=== PATIENT | female | born 1995 | race Caucasian/White ===

== ENCOUNTER 2018-06-15 13:30 | Inpatient (IN) | payer MEDICAID ==
[2018-06-15] MEDS ORDERED: NS(*) 0.9% 1000 ML BAG 2,000 ML IV ONE (13:39)
--- NOTE | 2018-06-15 13:39 | ER Report ---
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 Patient is , initially found to be hypotensive with systolic of 80, tachycardic in the 130s. Patient had received Pitocin 10 units twice while at home. Patient is full-term. Denies other comorbidities. Patient is alert and oriented at time of arrival. REVIEW OF SYSTEMS: Constitutional: No fever, no chills. Eyes: No discharge. ENT: No sore throat. Cardiovascular: No chest pain, no palpitations. Respiratory: No cough, no shortness of breath. Gastrointestinal: No abdominal pain, no vomiting. Genitourinary: + Vaginal laceration at 7:00 at the vaginal entrance, bleeding from laceration higher in the vaginal vault. Musculoskeletal: No back pain. Skin: No rashes. Neurological: No headache. Allergies: Coded Allergies: amoxicillin (Verified Allergy, Unknown, 06/15/18) Home Meds Active Scripts Ibuprofen (IBUPROFEN) 800 Mg Tablet, 800 MG PO Q8H@0300,1100,1900 PRN for PAIN, #30 TAB 0 Refills Prov:BARRY SANTOS MD 06/16/18 Reported Medications Cranberry Extract (CRANBERRY) 200 Mg Capsule, 200 MG PO, CAPSULE 06/15/18 [place]-3 Fatty Acids/Fish Oil (FISH OIL 1,000 MG CAPSULE) 1 Each Capsule, 1 EACH PO, CAPSULE 06/15/18 Flavoring Agent (GRAPEFRUIT) 1 Ml Oil, 1 ML MC 06/15/18 [Thyroid Support ] No Conflict Check 06/15/18 Vits W-Ca,Fe,Fa(<1MG) ( VITAMINS) 1 Each Tablet, 1 EACH PO DAILY, TAB 06/15/18 Constitutional Vital Sign - Last 24 Hours 06/15/18 06/15/18 06/15/18 06/15/18 13:30 13:32 13:35 13:35 Temp 98.2 Pulse ??? 104 Resp 14 B/P (MAP) 81/34 (50) 118/91 (100) 113/84 Pulse Ox 99 O2 Delivery Room Air 06/15/18 06/15/18 06/15/18 06/15/18 13:43 13:45 13:50 14:00 Pulse 108 192 Resp 51 9 B/P (MAP) 113/84 (94) 114/70 (85) 119/76 (90) Pulse Ox 99 77 06/15/18 06/15/18 06/15/18 06/15/18 14:10 14:15 14:20 14:30 Pulse 110 ??? Resp 17 8 B/P (MAP) 119/75 (90) 119/69 (86) 111/72 (85) Pulse Ox 97 97 06/15/18 06/15/18 06/15/18 06/15/18 14:40 14:41 14:45 14:50 Pulse 110 Resp 6 B/P (MAP) 118/74 (89) 112/67 (82) Pulse Ox 98 O2 Flow Rate 3.0 06/15/18 06/15/18 06/15/18 06/15/18 15:00 15:10 15:15 15:20 Pulse 104 119 114 Resp 6 23 19 B/P (MAP) 123/67 (85) 119/62 (81) Pulse Ox 97 97 95 06/15/18 06/15/18 06/15/18 06/15/18 15:27 15:29 15:31 15:35 Pulse 97 Resp 17 B/P (MAP) 110/69 (83) 90/61 (71) 102/50 (67) Pulse Ox 97 06/15/18 06/15/18 06/15/18 06/15/18 15:40 15:50 16:00 16:05 Pulse 103 101 Resp 13 18 B/P (MAP) 118/75 (89) 114/76 (89) 118/78 (91) Pulse Ox 96 98 06/15/18 06/15/18 06/15/18 06/15/18 16:10 16:20 16:29 16:30 Pulse 108 Resp 10 B/P (MAP) 118/80 (93) 119/69 (86) 118/75 (89) 120/80 (93) Pulse Ox 97 06/15/18 06/15/18 06/15/18 06/15/18 16:32 16:34 16:35 16:40 Pulse 103 165 119 161 Resp 21 B/P (MAP) 94/79 (84) 118/75 (89) 109/65 (80) 120/80 (93) 94/79 (84) Pulse Ox 93 94 O2 Delivery Room Air 06/15/18 06/15/18 06/15/18 16:50 17:00 17:05 Pulse 101 107 Resp 10 16 B/P (MAP) 112/59 (76) 110/68 (82) Pulse Ox 93 94 Intake and Output 06/15/18 06/15/18 06/16/18 14:59 22:59 06:59 Intake Total 2000 ml Balance 2000 ml Physical Exam General Appearance: The patient is alert, has no immediate need for airway protection and no signs of toxicity. Stable, alert and oriented, fatigued and weak Eyes: Pupils equal and round no pallor or injection. ENT, Mouth: Mucous membranes are moist. Respiratory: There are no retractions, lungs are clear to auscultation. Cardiovascular: Regular rate and rhythm. Gastrointestinal: Abdomen is soft and non tender, no masses, bowel sounds normal. Neurological: No focal neurological deficits Skin: Warm and dry, no rashes. Musculoskeletal: Neck is supple non tender. Extremities are nontender, nonswollen and have full range of motion. Genitourinary: Vaginal laceration at 7:00 at the vaginal introitus, bleeding from deeper in the vaginal vault DIFFERENTIAL DIAGNOSIS: After history and physical exam differential diagnosis was considered for vaginal laceration , retained products of conception, uterine atony Medical Decision Making Data Points Result Diagram: 06/16/18 0200 06/15/18 1336 Laboratory Hematology Test 06/15/18 13:36 06/15/18 15:43 Neutrophils % (Manual) 75 % (39.4-72.5) Band Neutrophils % 18 % Lymphocytes % (Manual) 3 % (17.6-49.6) Monocytes % (Manual) 4 % (4.1-12.4) Eosinophils % (Manual) 0 % (0.4-6.7) Basophils % (Manual) 0 % (0.3-1.4) Platelet Estimate Normal Prothrombin Time 13.8 seconds (12.0-14.4) Prothromb Time International Ratio 1.05 Activated Partial Thromboplast Time 29 seconds (23-35) Sodium Level 131 mmol/L (137-145) Potassium Level 4.2 mmol/L (3.5-5.0) Chloride Level 104 mmol/L (98-107) Carbon Dioxide Level 19 mmol/L (22-31) Blood Urea Nitrogen 11 mg/dl (7-18) Creatinine 0.80 mg/dl (0.52-1.04) Glomerular Filtration Rate Calc > 60.0 Random Glucose 177 mg/dl (75-110) Calcium Level 9.1 mg/dl (8.4-10.2) Total Bilirubin 0.2 mg/dl (0.2-1.3) Aspartate Amino Transf (AST/SGOT) 27 U/L (0-35) Alanine Aminotransferase (ALT/SGPT) 23 U/L (0-56) Alkaline Phosphatase 113 U/L (0-126) Total Protein 6.0 g/dl (6.3-8.2) Albumin 3.4 g/dl (3.5-5.0) Red Blood Count 3.33 M/uL (4.17-5.56) Mean Corpuscular Volume 90.0 fL (80.0-96.0) Mean Corpuscular Hemoglobin 30.5 pg (26.0-33.0) Mean Corpuscular Hemoglobin Concent 33.9 g/dL (32.0-36.0) Red Cell Distribution Width 13.2 % (11.5-14.5) Mean Platelet Volume 8.3 fL (7.2-11.1) Neutrophils (%) (Auto) 93.3 % (39.4-72.5) Lymphocytes (%) (Auto) 1.7 % (17.6-49.6) Monocytes (%) (Auto) 4.3 % (4.1-12.4) Eosinophils (%) (Auto) 0.0 % (0.4-6.7) Basophils (%) (Auto) 0.1 % (0.3-1.4) Nucleated RBC Relative Count (auto) 0.0 /100WBC Neutrophils # (Auto) 18.5 K/uL (2.0-7.4) Lymphocytes # (Auto) 0.3 K/uL (1.3-3.6) Monocytes # (Auto) 0.9 K/uL (0.3-1.0) Eosinophils # (Auto) 0.0 K/uL (0.0-0.5) Basophils # (Auto) 0.0 K/uL (0.0-0.1) Nucleated RBC Absolute Count (auto) 0.00 K/uL Peripheral Blood Smear Yes Y/N Chemistry Test 06/15/18 13:36 06/15/18 15:43 Neutrophils % (Manual) 75 % (39.4-72.5) Band Neutrophils % 18 % Lymphocytes % (Manual) 3 % (17.6-49.6) Monocytes % (Manual) 4 % (4.1-12.4) Eosinophils % (Manual) 0 % (0.4-6.7) Basophils % (Manual) 0 % (0.3-1.4) Platelet Estimate Normal Prothrombin Time 13.8 seconds (12.0-14.4) Prothromb Time International Ratio 1.05 Activated Partial Thromboplast Time 29 seconds (23-35) Glomerular Filtration Rate Calc > 60.0 Calcium Level 9.1 mg/dl (8.4-10.2) Total Bilirubin 0.2 mg/dl (0.2-1.3) Aspartate Amino Transf (AST/SGOT) 27 U/L (0-35) Alanine Aminotransferase (ALT/SGPT) 23 U/L (0-56) Alkaline Phosphatase 113 U/L (0-126) Total Protein 6.0 g/dl (6.3-8.2) Albumin 3.4 g/dl (3.5-5.0) White Blood Count 19.9 k/uL (4.5-11.0) Red Blood Count 3.33 M/uL (4.17-5.56) Mean Corpuscular Volume 90.0 fL (80.0-96.0) Mean Corpuscular Hemoglobin 30.5 pg (26.0-33.0) Mean Corpuscular Hemoglobin Concent 33.9 g/dL (32.0-36.0) Red Cell Distribution Width 13.2 % (11.5-14.5) Platelet Count 160 K/uL (150-450) Mean Platelet Volume 8.3 fL (7.2-11.1) Neutrophils (%) (Auto) 93.3 % (39.4-72.5) Lymphocytes (%) (Auto) 1.7 % (17.6-49.6) Monocytes (%) (Auto) 4.3 % (4.1-12.4) Eosinophils (%) (Auto) 0.0 % (0.4-6.7) Basophils (%) (Auto) 0.1 % (0.3-1.4) Nucleated RBC Relative Count (auto) 0.0 /100WBC Neutrophils # (Auto) 18.5 K/uL (2.0-7.4) Lymphocytes # (Auto) 0.3 K/uL (1.3-3.6) Monocytes # (Auto) 0.9 K/uL (0.3-1.0) Eosinophils # (Auto) 0.0 K/uL (0.0-0.5) Basophils # (Auto) 0.0 K/uL (0.0-0.1) Nucleated RBC Absolute Count (auto) 0.00 K/uL Peripheral Blood Smear Yes Y/N Coagulation Test 06/15/18 13:36 Prothrombin Time 13.8 seconds Prothromb Time International Ratio 1.05 Activated Partial Thromboplast Time 29 seconds ED Course/Re-evaluation ED Course Patient is a 23-year-old female here with complaints of vaginal bleeding with vaginal laceration at the vaginal introitus, incompletely visualized laceration deeper in the vaginal vault. Patient was initially tachycardic, hypotensive but responded well to fluid resuscitation after 2 large-bore IVs were established. Hemoglobin and hematocrit were stable. I discussed the patient with Dr. Santos after initial visualization using a speculum. I discussed the patient with him since I was unable to fully visualize the deeper laceration which will likely need suture repair and approximation. Patient was repaired by Dr. Santos. Patient's orthostatics were tested and patient was noted he orthostatic, profoundly tachycardic while standing, initial ly having a syncopal episode when transitioning from a seated to a standing position. Urine after the patient received 2 L of fluid, patient remained orthostatic and extremely lightheaded while standing. Hemoglobin and hematocrit were rechecked as a baseline was not established prior to delivery. 2nd CBC showed a further drop in H&H of a minimum of 2 g hemoglobin. More importantly, the patient remained symptomatic so 2 units of packed red blood cells were ordered and patient was subsequently admitted to [facility] under Dr. Santos's service. Patient was nontoxic appearing at time of admission. Decision to Disposition Date: Jun 15, 2018 Decision to Disposition Time: 16:30 Depart Departure Latest Vital Signs Vital Signs Date Time Temp Pulse Resp B/P (MAP) Pulse Ox O2 Delivery O2 Flow Rate FiO2 06/15/18 17:05 107 16 94 06/15/18 17:00 110/68 (82) 06/15/18 16:34 Room Air 06/15/18 14:41 3.0 06/15/18 13:35 98.2 Impression: Primary Impression: Status post vaginal delivery Additional Impression: Vaginal bleeding Condition: Improved Disposition: Admitted from ER New Scripts Ibuprofen (IBUPROFEN) 800 Mg Tablet 800 MG PO Q8H@0300,1100,1900 PRN for PAIN, #30 TAB 0 Refills Prov: BARRY SANTOS MD 06/16/18 Patient Instructions: Post Discharge Instruct Additional Instructions: Please drink plenty of water to maintain hydration. Please return immediately if she develop recurrent bleeding, fevers, abdominal pains, nausea, vomiting, visual changes, headaches. Please keep all appointments as scheduled. Problem Qualifiers EVELYN DAVIS DO Jun 15, 2018 13:39
[2018-06-15 13:55] LABS: INR 1.05
[2018-06-15 13:56] LABS: PLATELET COUNT, AUTOMATED 209 K/uL (150-450)
[2018-06-15] MEDS ORDERED: fentaNYL CITR 100 MCG/2 ML AMP ONE (14:02)
[2018-06-15] MEDS ORDERED: NS(*) 0.9% 1000 ML BAG 1,000 ML IV ONE (15:35)
[2018-06-15 15:56] LABS: PLATELET COUNT, AUTOMATED 160 K/uL (150-450)
[2018-06-15] MEDS ORDERED: PREN-127 PO (17:01)
[2018-06-15] MEDS ORDERED: CRAN200C5 PO (17:01)
[2018-06-15] MEDS ORDERED: OMEG-11 PO (17:01)
[2018-06-15] MEDS ORDERED: THYROID SUPPORT (17:01)
[2018-06-15] MEDS ORDERED: [UNRECOGNIZED DRUG - CODE] MC (17:01)
[2018-06-15] MEDS ORDERED: ACETAMINOPHEN 500 MG TAB PO ONE (17:20)
[2018-06-15] MEDS ORDERED: diphenhydrAMINE 25 MG CAP PO ONE (17:20)
[2018-06-15] MEDS ORDERED: NS(*) 0.9% 500 ML BAG 500 ML IV ONE (17:40)
[2018-06-15] MEDS ORDERED: BENZOCAINE 20% 60 ML BTL TP PRN (18:25)
[2018-06-15] MEDS ORDERED: GLYCERIN/WITCH HAZEL LEAF 1 PK TOP PRN (18:25)
[2018-06-15] MEDS ORDERED: LANOLIN OINT 7 GM TUBE TP PRN (18:25)
[2018-06-15 19:25] VITALS: BP 133/74
[2018-06-15 19:30] VITALS: BP 133/74
[2018-06-15 21:10] VITALS: BP 133/72
--- NOTE | 2018-06-15 21:41 | CONSULTATION ---
EVENT DATE: June 15, 2018 CONSULTING PHYSICIAN David Santos MD IMPRESSION 1. Three hours status post normal spontaneous vaginal delivery at home with a automation qa lead. 2. Vaginal and perineal lacerations. 3. Obstetrical hemorrhage due to lacerations. PHYSICAL EXAMINATION I have evaluated the patient and examined her in the Emergency Room and deemed the bleeding to be primarily sourced from the lacerations present within the vagina and perineum. She had a first-degree laceration at the opening of the introitus that did not break the outer perineum, but did perforate into the inner perineum. There was also a vaginal sulcus extension along the right side and a left-sided periurethral laceration that extended into the anterior vaginal sulcus on that side. Both left and right lacerations extended onto the left labia minor. PROCEDURE These were all repaired using 2-0 chromic in a running locking fashion through the length of the vaginal lacerations and perineal body. A 3-0 chromic was used to repair the left anterior vagina and left periurethral and labial laceration. 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 She was hypotensive upon arrival with a systolic of 80 and tachycardic in the 130s. The patient received 20 units of Pitocin while at home and was full term. Upon arrival to the Emergency Room, they started IV fluids for hemodynamic support. After initial analysis and assessment by the Emergency Room, including the CBC showing a white blood cell count of 23, hemoglobin 12.7, hematocrit 37.4, platelets 209, and an assessment of the bleeding, I was called to assess and further help repair the vaginal and perineal lacerations. Otherwise, the emergency room physician deemed the patient hemodynamically stable. IOANA
[2018-06-15 22:16] VITALS: BP 123/75
[2018-06-15 23:00] VITALS: BP 131/67
[2018-06-16] MEDS: IBUPROFEN 800 MG TAB PO SCH ×2 (00:08→11:33)
[2018-06-16 00:18] VITALS: BP 129/83
[2018-06-16 00:21] VITALS: BP 129/83
[2018-06-16 04:24] VITALS: BP 119/61
[2018-06-16 08:11] VITALS: BP 110/67
--- NOTE | 2018-06-16 11:14 | History & Physical ---
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 She was hypotensive upon arrival with a systolic of 80 and tachycardic in the 130s. The patient received 20 units of Pitocin while at home and was full term. Upon arrival to the Emergency Room, they started IV fluids for hemodynamic support. After initial analysis and assessment by the Emergency Room, including the CBC showing a white blood cell count of 23, hemoglobin 12.7, hematocrit 37.4, platelets 209, and an assessment of the bleeding, I was called to assess and further help repair the vaginal and perineal lacerations. Otherwise, the emergency room physician deemed the patient hemodynamically stable. Following my repair and leaving the emergency room, the pt could not stand to ambulate and was orthostatic. It was requested that I admit the pt for further treatment. I recommended 2 units PRBCs to be transfused right away. Her hgb settled to 10.5 in ER. She was admitted to the floor for transfusion. History Allergies: Coded Allergies: amoxicillin (Verified Allergy, Unknown, 06/15/18) Med Rec Home Meds Reported Medications Cranberry Extract (CRANBERRY) 200 Mg Capsule, 200 MG PO, CAPSULE 06/15/18 [place]-3 Fatty Acids/Fish Oil (FISH OIL 1,000 MG CAPSULE) 1 Each Capsule, 1 EACH PO, CAPSULE 06/15/18 Flavoring Agent (GRAPEFRUIT) 1 Ml Oil, 1 ML MC 06/15/18 [Thyroid Support ] No Conflict Check 06/15/18 Vits W-Ca,Fe,Fa(<1MG) ( VITAMINS) 1 Each Tablet, 1 EACH PO DAILY, TAB 06/15/18 Review of Systems All Systems Reviewed/Normal: Yes, Except as Noted Neurological: Syncope, Weakness, Dizziness Exam General Exam Vital Signs Vital Signs Date Time Temp Pulse Resp B/P (MAP) Pulse Ox O2 Delivery O2 Flow Rate FiO2 06/16/18 08:11 98.2 92 14 110/67 (81) 06/16/18 04:24 98 Room Air 06/15/18 14:41 3.0 General Apperance: Alert/Awake/No Acute Distress Neuro: No Gross deficits Cardiovascular: Regular Rate and Rhythm Respiratory: No Respiratory Distress, Clear to Auscultation Abdomen: Soft, Non-Tender, Non-Distended Integumentary: Skin Intact without Lesions or Rash Psychological: Alert & Oriented X3, Appropriate Mood & Affect Medical Decision Making Data Points Result Diagram: 06/16/18 0200 06/15/18 1336 Hematology Test 06/15/18 13:36 06/15/18 15:43 Neutrophils % (Manual) 75 % (39.4-72.5) Band Neutrophils % 18 % Lymphocytes % (Manual) 3 % (17.6-49.6) Monocytes % (Manual) 4 % (4.1-12.4) Eosinophils % (Manual) 0 % (0.4-6.7) Basophils % (Manual) 0 % (0.3-1.4) Platelet Estimate Normal Prothrombin Time 13.8 seconds (12.0-14.4) Prothromb Time International Ratio 1.05 Activated Partial Thromboplast Time 29 seconds (23-35) Sodium Level 131 mmol/L (137-145) Potassium Level 4.2 mmol/L (3.5-5.0) Chloride Level 104 mmol/L (98-107) Carbon Dioxide Level 19 mmol/L (22-31) Blood Urea Nitrogen 11 mg/dl (7-18) Creatinine 0.80 mg/dl (0.52-1.04) Glomerular Filtration Rate Calc > 60.0 Random Glucose 177 mg/dl (75-110) Calcium Level 9.1 mg/dl (8.4-10.2) Total Bilirubin 0.2 mg/dl (0.2-1.3) Aspartate Amino Transf (AST/SGOT) 27 U/L (0-35) Alanine Aminotransferase (ALT/SGPT) 23 U/L (0-56) Alkaline Phosphatase 113 U/L (0-126) Total Protein 6.0 g/dl (6.3-8.2) Albumin 3.4 g/dl (3.5-5.0) Red Blood Count 3.33 M/uL (4.17-5.56) Mean Corpuscular Volume 90.0 fL (80.0-96.0) Mean Corpuscular Hemoglobin 30.5 pg (26.0-33.0) Mean Corpuscular Hemoglobin Concent 33.9 g/dL (32.0-36.0) Red Cell Distribution Width 13.2 % (11.5-14.5) Mean Platelet Volume 8.3 fL (7.2-11.1) Neutrophils (%) (Auto) 93.3 % (39.4-72.5) Lymphocytes (%) (Auto) 1.7 % (17.6-49.6) Monocytes (%) (Auto) 4.3 % (4.1-12.4) Eosinophils (%) (Auto) 0.0 % (0.4-6.7) Basophils (%) (Auto) 0.1 % (0.3-1.4) Nucleated RBC Relative Count (auto) 0.0 /100WBC Neutrophils # (Auto) 18.5 K/uL (2.0-7.4) Lymphocytes # (Auto) 0.3 K/uL (1.3-3.6) Monocytes # (Auto) 0.9 K/uL (0.3-1.0) Eosinophils # (Auto) 0.0 K/uL (0.0-0.5) Basophils # (Auto) 0.0 K/uL (0.0-0.1) Nucleated RBC Absolute Count (auto) 0.00 K/uL Peripheral Blood Smear Yes Y/N Chemistry Test 06/15/18 13:36 06/15/18 15:43 06/16/18 02:00 Neutrophils % (Manual) 75 % (39.4-72.5) Band Neutrophils % 18 % Lymphocytes % (Manual) 3 % (17.6-49.6) Monocytes % (Manual) 4 % (4.1-12.4) Eosinophils % (Manual) 0 % (0.4-6.7) Basophils % (Manual) 0 % (0.3-1.4) Platelet Estimate Normal Prothrombin Time 13.8 seconds (12.0-14.4) Prothromb Time International Ratio 1.05 Activated Partial Thromboplast Time 29 seconds (23-35) Glomerular Filtration Rate Calc > 60.0 Calcium Level 9.1 mg/dl (8.4-10.2) Total Bilirubin 0.2 mg/dl (0.2-1.3) Aspartate Amino Transf (AST/SGOT) 27 U/L (0-35) Alanine Aminotransferase (ALT/SGPT) 23 U/L (0-56) Alkaline Phosphatase 113 U/L (0-126) Total Protein 6.0 g/dl (6.3-8.2) Albumin 3.4 g/dl (3.5-5.0) White Blood Count 19.9 k/uL (4.5-11.0) Red Blood Count 3.33 M/uL (4.17-5.56) Mean Corpuscular Volume 90.0 fL (80.0-96.0) Mean Corpuscular Hemoglobin 30.5 pg (26.0-33.0) Mean Corpuscular Hemoglobin Concent 33.9 g/dL (32.0-36.0) Red Cell Distribution Width 13.2 % (11.5-14.5) Platelet Count 160 K/uL (150-450) Mean Platelet Volume 8.3 fL (7.2-11.1) Neutrophils (%) (Auto) 93.3 % (39.4-72.5) Lymphocytes (%) (Auto) 1.7 % (17.6-49.6) Monocytes (%) (Auto) 4.3 % (4.1-12.4) Eosinophils (%) (Auto) 0.0 % (0.4-6.7) Basophils (%) (Auto) 0.1 % (0.3-1.4) Nucleated RBC Relative Count (auto) 0.0 /100WBC Neutrophils # (Auto) 18.5 K/uL (2.0-7.4) Lymphocytes # (Auto) 0.3 K/uL (1.3-3.6) Monocytes # (Auto) 0.9 K/uL (0.3-1.0) Eosinophils # (Auto) 0.0 K/uL (0.0-0.5) Basophils # (Auto) 0.0 K/uL (0.0-0.1) Nucleated RBC Absolute Count (auto) 0.00 K/uL Peripheral Blood Smear Yes Y/N Hemoglobin 10.6 g/dL (12.0-16.0) Hematocrit 31.0 % (34.0-47.0) Coagulation Test 06/15/18 13:36 Prothrombin Time 13.8 seconds Prothromb Time International Ratio 1.05 Activated Partial Thromboplast Time 29 seconds VTE Prophylasis: Adult Deep Vein Thrombosis/Pulmonary: No Pharmacological Contraindicati: Pt at Low Risk for VTE Mechanical Contraindications: Pt at Low Risk for VTE Assessment and Plan Problems: (1) hemorrhage Assessment & Plan: Vaginal repair has been completed and is stable. She required 2 units PRBCs in order to not be orthostatic any more. Her Hgb post transfusion was 10.5. She will be discharged with precautions to call if signs of infection, bleeding, pain. (2) Perineal/vulvar trauma with delivery (3) Anemia associated with acute blood loss (4) Vaginal bleeding Status: Acute (5) Status post vaginal delivery Status: Acute Problem Qualifiers (1) hemorrhage: hemorrhage type: unspecified Qualified Codes: O72.1 - Other immediate hemorrhage BARRY GLEASON MD Jun 16, 2018 11:14
[2018-06-16] MEDS ORDERED: IBUP800T37 PO (11:15)
--- NOTE | 2018-06-16 11:17 | Short(Outpt) Discharge Summary ---
Discharge Summary Reason for Hosp/Final Diag: (1) hemorrhage Hospital Course & Plan: Vaginal repair has been completed and is stable. She required 2 units PRBCs in order to not be orthostatic any more. Her Hgb post transfusion was 10.5. She will be discharged with precautions to call if signs of infection, bleeding, pain. (2) Perineal/vulvar trauma with delivery (3) Anemia associated with acute blood loss (4) Vaginal bleeding Status: Acute (5) Status post vaginal delivery Status: Acute Departure Discharge to: Home, Self Care Discharge Instructions Home Meds Active Scripts Ibuprofen (IBUPROFEN) 800 Mg Tablet, 800 MG PO Q8H@0300,1100,1900 PRN for PAIN, #30 TAB 0 Refills Prov:BARRY GLEASON MD 06/16/18 Reported Medications Cranberry Extract (CRANBERRY) 200 Mg Capsule, 200 MG PO, CAPSULE 06/15/18 [place]-3 Fatty Acids/Fish Oil (FISH OIL 1,000 MG CAPSULE) 1 Each Capsule, 1 EACH PO, CAPSULE 06/15/18 Flavoring Agent (GRAPEFRUIT) 1 Ml Oil, 1 ML MC 06/15/18 [Thyroid Support ] No Conflict Check 06/15/18 Vits W-Ca,Fe,Fa(<1MG) ( VITAMINS) 1 Each Tablet, 1 EACH PO D AILY, TAB 06/15/18 Follow up Referrals: 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
== END 2018-06-16 12:10 | disposition home or self-care (01) | DRG 769 ==
LOC: ER 13:40 → PED 17:06
PROVIDERS: ADMIT Obstetrics & Gynecology; ATTEND Obstetrics & Gynecology
PROC: 0KQM0ZZ Repair Perineum Muscle, Open Approach (ICD-10-PCS; principal; 2018-06-15)
PROC: 30233N1 Transfusion of Nonautologous Red Blood Cells into Peripheral Vein, Percutaneous Approach (ICD-10-PCS; 2018-06-15)
DX: O72.1 Other immediate postpartum hemorrhage (principal); D62 Acute posthemorrhagic anemia; O90.1 Disruption of perineal obstetric wound; O90.81 Anemia of the puerperium; R55 Syncope and collapse; Y92.238 Other place in hospital as the place of occurrence of the external cause
CPT/HCPCS: 36415; 82040; 82247; 82310; 82374; 82435; 82565; 82947; 84075; 84132; 84155; 84295; 84450; 84460; 84520; 85014; 85018; 85025; 85610; 85730; 86850; 86900; 86901; 86920; 96360; 99284; J3010; J7030; P9016; Q0163

== ENCOUNTER → 2018-06-15 | Outpatient (CLI) | payer MEDICAID ==
[~2018-06-15] MED LIST: CRAN200C5 PO; IBUP800T37 PO; OMEG-11 PO; PREN-127 PO; THYROID SUPPORT; [UNRECOGNIZED DRUG - CODE] MC
== END ==
LOC: AMB 13:04
PROVIDERS: ATTEND Nurse Practitioner
DX: O72.1 Other immediate postpartum hemorrhage (principal); R53.1 Weakness; I95.9 Hypotension, unspecified
CPT/HCPCS: A0425; A0427